=== PATIENT | female | born 1990 | race African-American/Black ===

== ENCOUNTER 2019-01-23 09:06 | Emergency (ER) | payer MEDICAID ==
[~2019-01-23] VITALS: Ht 170.2 cm; Wt 103.0 kg
[2019-01-23] MEDS ORDERED: SODIUM CHLORIDE 0.9% 1,000 ML IV ONE (09:36)
[2019-01-23] MEDS ORDERED: FAMOTIDINE 20MG/2ML VIAL IV STA (09:36)
[2019-01-23 10:26] LABS: BASOPHILS % 0.7 % (0.0-2.0); EOSINOPHILS % 2.4 % (0.0-5.0); HEMATOCRIT. 37.1 % (36.0-48.0); HEMOGLOBIN. 12.6 g/dL (12.0-16.0); LYMPHOCYTES % 28.1 % (20.0-50.0); MEAN CORPUSCULAR HEMOGLOBIN 30.7 pg (28.0-32.0); MEAN CORPUSCULAR VOLUME 90.6 fL (81.0-99.0); MEAN PLATELET VOLUME 8.2 fl (7.4-10.4); MONOCYTES % 6.3 % (2.0-8.0); NEUTROPHILS % 62.5 % (40.0-76.0); PLATELET 320 x1000/uL (130-400); RED BLOOD CELL COUNT 4.09 mill/uL (4.2-5.4); RED CELL DISTRIBUTION WIDTH 13.4 % (11.6-14.6)
[2019-01-23 10:32] LABS: CHLORIDE 109 mEq/L (98-107); PROTHROMBIN TIME 9.9 sec (9.6-11.0)
[2019-01-23 10:38] LABS: HCG SCREEN NEGATIVE
[2019-01-23 10:45] LABS: B-HCG QUANTITATIVE < 1 mIU/mL (<3)
[2019-01-23 10:49] LABS: CLARITY URINE CLOUDY (CLEAR); COLOR URINE YELLOW (YELLOW); KETONES URINE NEGATIVE (NEGATIVE); LEUKOCYTE ESTERASE URINE 2+ (NEGATIVE); NITRITE URINE NEGATIVE (NEGATIVE); OCCULT BLOOD URINE NEGATIVE (NEGATIVE); PROTEIN URINE NEGATIVE (NEGATIVE); SPECIFIC GRAVITY URINE 1.019 (1.005-1.030); UROBILINOGEN URINE 0.2 E.U./dL (0.2-1.0)
[2019-01-23 11:11] LABS: *AMPHETAMINES SCREEN URINE NEGATIVE (NEGATIVE); *BARBITURATES SCREEN URINE NEGATIVE (NEGATIVE); *BENZODIAZEPINES SCREEN URINE NEGATIVE (NEGATIVE); *COCAINE SCREEN URINE NEGATIVE (NEGATIVE)
[2019-01-23 11:12] LABS: CANNABINOID URINE SCREEN NEGATIVE (NEGATIVE); METHADONE URINE SCREEN NEGATIVE (NEGATIVE); OPIATES URINE SCREEN NEGATIVE (NEGATIVE); PHENCYCLIDINE URINE SCREEN NEGATIVE (NEGATIVE)
[2019-01-23 11:55] VITALS: BP 135/89
== END 2019-01-23 12:09 | disposition home or self-care (01) ==
LOC: ER 09:06
DX: R06.00 Dyspnea, unspecified (principal); N39.0 Urinary tract infection, site not specified; F32.9 Major depressive disorder, single episode, unspecified; Z87.19 Personal history of other diseases of the digestive system
CPT/HCPCS: 36415; 71045; 80053; 80305; 81003; 81025; 83690; 83880; 84484; 84702; 84703; 85025; 85610; 86850; 86900; 86901; 93005; 96374; 99284; J3490; J7030

== ENCOUNTER 2019-04-29 09:22 | Emergency (ER) | payer MEDICAID, MEDICARE ==
[~2019-04-29] VITALS: Ht 167.6 cm; Wt 109.0 kg
[2019-04-29 09:35] VITALS: BP 138/76
[2019-04-29] MEDS ORDERED: ACETAMINOPHEN 325MG TABLET PO ONE (11:15)
== END 2019-04-29 12:19 | disposition home or self-care (01) ==
LOC: ER 09:22
DX: O99.89 Other specified diseases and conditions complicating pregnancy, childbirth and the puerperium (principal); J02.9 Acute pharyngitis, unspecified; O26.891 Other specified pregnancy related conditions, first trimester; R03.0 Elevated blood-pressure reading, without diagnosis of hypertension; Z3A.14 14 weeks gestation of pregnancy
CPT/HCPCS: 81025; 99282

== ENCOUNTER 2020-08-14 06:35 | Emergency (ER) | payer MEDICARE ==
[~2020-08-14] VITALS: Ht 165.1 cm; Wt 91.0 kg
[2020-08-14] MEDS ORDERED: ACETAMINOPHEN 325MG TABLET PO STA (07:37)
[2020-08-14 10:00] VITALS: BP 135/89
== END 2020-08-14 11:40 | disposition home or self-care (01) ==
LOC: ER 07:17
DX: S00.83XA Contusion of other part of head, initial encounter (principal); R55 Syncope and collapse; Y08.89XA Assault by other specified means, initial encounter; Y93.89 Activity, other specified; Y92.89 Other specified places as the place of occurrence of the external cause; Y99.8 Other external cause status
CPT/HCPCS: 70450; 73080; 73090; 81025; 99284; Z7610

== ENCOUNTER 2020-09-04 20:20 | Emergency (ER) | payer MEDICAID, MEDICARE ==
[~2020-09-04] VITALS: Ht 167.6 cm; Wt 104.0 kg
[2020-09-04] MEDS ORDERED: PYRIDOXINE HCL 50MG TABLET PO ONE (21:00)
[2020-09-04] MEDS ORDERED: SODIUM CHLORIDE 0.9% 1,000 ML IV ONE (21:00)
[2020-09-04 21:50] LABS: CHLORIDE 108 mEq/L (98-107)
[2020-09-04] MEDS ORDERED: POTASSIUM CHLORIDE 20MEQ TABLET SR PO ONE (22:15)
[2020-09-04 23:20] VITALS: BP 112/68
== END 2020-09-04 23:20 | disposition home or self-care (01) ==
LOC: ER 20:20
DX: R11.0 Nausea (principal); E86.0 Dehydration
CPT/HCPCS: 36415; 80053; 81025; 93005; 96360; 99284; J7030

== ENCOUNTER 2021-05-01 19:40 | Inpatient (IN) | payer MEDICAID ==
[~2021-05-01] VITALS: Ht 167.6 cm; Wt 104.3 kg
[2021-05-01] MEDS ORDERED: BISACODYL 10MG SUPP PR PRN (20:15)
[2021-05-01] MEDS ORDERED: DIPHENHYDRAMINE 25MG CAPSULE PO PRN (20:15)
[2021-05-01] MEDS ORDERED: GLYCERIN/WITCH HAZEL LEAF MEDICATED PAD TOP PRN (20:15)
[2021-05-01] MEDS ORDERED: IBUPROFEN 400MG TABLET PO PRN (20:15)
[2021-05-01] MEDS ORDERED: LANOLIN OINT 7GM TUBE TOP PRN (20:15)
[2021-05-01] MEDS ORDERED: RHO(D) IMMUNE GLOBULIN 300 MCG/SYR IM PRN (20:15)
[2021-05-01] MEDS ORDERED: ACETAMINOPHEN WITH CODEINE 300/30MG TABLET PO PRN (20:15)
[2021-05-01] MEDS ORDERED: LACTATED RINGERS 1,000 ML IV SCH (20:15)
[2021-05-01] MEDS ORDERED: NALOXONE HCL 0.4 MG/ML 1ML VIAL IM PRN (20:15)
[2021-05-01] MEDS ORDERED: CARBOPROST TROMETHAMINE 250 MCG/ML AMPUL IM PRN (20:15)
[2021-05-01] MEDS ORDERED: HEMORRHOIDAL SUPP PR PRN (20:15)
[2021-05-01] MEDS ORDERED: DEXT 5%/LR + PITOCIN 20UNITS/L 1,000 ML IV SCH (20:15)
[2021-05-01] MEDS ORDERED: METHYLERGONOVINE MALEATE 0.2 MG/ML IM PRN ×2 (20:15)
[2021-05-01 21:35] LABS: BASOPHILS % 0.3 % (0.0-2.0); EOSINOPHILS % 0.7 % (0.0-5.0); HEMATOCRIT. 34.2 % (36.0-48.0); HEMOGLOBIN. 11.6 g/dL (12.0-16.0); LYMPHOCYTES % 22.1 % (20.0-50.0); MEAN CORPUSCULAR HEMOGLOBIN 31.1 pg (28.0-32.0); MEAN CORPUSCULAR VOLUME 91.6 fL (81.0-99.0); MEAN PLATELET VOLUME 7.7 fl (7.4-10.4); MONOCYTES % 4.3 % (2.0-8.0); NEUTROPHILS % 72.6 % (40.0-76.0); PLATELET 298 x1000/uL (130-400); RED BLOOD CELL COUNT 3.74 mill/uL (4.2-5.4); RED CELL DISTRIBUTION WIDTH 13.6 % (11.6-14.6)
[2021-05-01] MEDS: DEXT 5%/LR + PITOCIN 20UNITS/L 1,000 ML IV SCH ×2 (21:35→23:07)
[2021-05-01] MEDS ORDERED: FERR-71 MT (21:37)
[2021-05-01] MEDS ORDERED: PREN-52 PO (21:37)
[2021-05-01 21:39] LABS: CLARITY URINE TURBID (CLEAR); COLOR URINE RED (YELLOW); KETONES URINE 1+ (NEGATIVE); LEUKOCYTE ESTERASE URINE 2+ (NEGATIVE); NITRITE URINE NEGATIVE (NEGATIVE); OCCULT BLOOD URINE 3+ (NEGATIVE); PH URINE 6.5 (4.5-8.0); PROTEIN URINE 2+ (NEGATIVE); SPECIFIC GRAVITY URINE 1.016 (1.005-1.030)
[2021-05-01 21:40] LABS: INR 0.9; PARTIAL THROMBOPLASTIN TIME 27.3 sec (23.4-31.0); PROTHROMBIN TIME 9.7 sec (9.6-11.0)
[2021-05-01 22:12] LABS: *AMPHETAMINES SCREEN URINE NEGATIVE (NEGATIVE); *BARBITURATES SCREEN URINE NEGATIVE (NEGATIVE); *BENZODIAZEPINES SCREEN URINE NEGATIVE (NEGATIVE)
[2021-05-01 22:13] LABS: *COCAINE SCREEN URINE NEGATIVE (NEGATIVE); CANNABINOID URINE SCREEN NEGATIVE (NEGATIVE); METHADONE URINE SCREEN NEGATIVE (NEGATIVE); OPIATES URINE SCREEN NEGATIVE (NEGATIVE); PHENCYCLIDINE URINE SCREEN NEGATIVE (NEGATIVE)
[2021-05-01 23:00] VITALS: BP 130/82
[2021-05-01] MEDS: IBUPROFEN 800MG TABLET PO PRN (23:07)
[2021-05-01] MEDS: DOCUSATE SODIUM 100MG CAPSULE PO SCH (23:07)
[2021-05-02 01:43] VITALS: BP 120/58
[2021-05-02 01:58] LABS: HEPATITIS B SURFACE ANTIGEN NEGATIVE
[2021-05-02 04:12] VITALS: BP 130/76
[2021-05-02 07:36] LABS: BASOPHILS % 0.4 % (0.0-2.0); EOSINOPHILS % 1.1 % (0.0-5.0); HEMATOCRIT. 32.7 % (36.0-48.0); HEMOGLOBIN. 11.5 g/dL (12.0-16.0); LYMPHOCYTES % 22.1 % (20.0-50.0); MEAN CORPUSCULAR HEMOGLOBIN 31.7 pg (28.0-32.0); MEAN CORPUSCULAR VOLUME 90.2 fL (81.0-99.0); MEAN PLATELET VOLUME 7.5 fl (7.4-10.4); NEUTROPHILS % 71.4 % (40.0-76.0); PLATELET 248 x1000/uL (130-400); RED BLOOD CELL COUNT 3.62 mill/uL (4.2-5.4); RED CELL DISTRIBUTION WIDTH 13.7 % (11.6-14.6)
[2021-05-02 08:00] VITALS: BP 132/73
[2021-05-02] MEDS: PRENATAL VIT/FE FUMARATE/FA TABLET PO SCH (16:01)
[2021-05-02] MEDS: IBUPROFEN 800MG TABLET PO PRN (16:01)
[2021-05-02] MEDS: FERROUS SULFATE 325MG TABLET PO SCH (16:01)
[2021-05-02 16:31] VITALS: BP 138/65
[2021-05-02 20:00] VITALS: BP 119/63
[2021-05-02] MEDS: DOCUSATE SODIUM 100MG CAPSULE PO SCH (21:42)
[2021-05-03 04:00] VITALS: BP 125/78
[2021-05-03] MEDS: IBUPROFEN 800MG TABLET PO PRN (04:50)
[2021-05-03] MEDS ORDERED: IBUP-2030 PO (07:11)
[2021-05-03] MEDS: FERROUS SULFATE 325MG TABLET PO SCH (08:20)
[2021-05-03] MEDS: PRENATAL VIT/FE FUMARATE/FA TABLET PO SCH (08:20)
[2021-05-03 08:30] VITALS: BP 126/72
[2021-05-03 13:06] LABS: HIV SCREEN 4G Non Reactive (Non Reactive)
== END 2021-05-03 13:05 | disposition home or self-care (01) | DRG 560 ==
LOC: OBSVTOIN 19:40 → 8 EST LDRP 19:40
PROVIDERS: ADMIT Specialist; ATTEND Specialist
PROC: 10D07Z6 Extraction of Products of Conception, Vacuum, Via Natural or Artificial Opening (ICD-10-PCS; principal; 2021-05-01)
DX: O48.0 Post-term pregnancy (principal); Z37.0 Single live birth; U07.1 COVID-19; O99.344 Other mental disorders complicating childbirth; O98.52 Other viral diseases complicating childbirth; O69.81X0 Labor and delivery complicated by cord around neck, without compression, not applicable or unspecified; F32.A Depression, unspecified; O76 Abnormality in fetal heart rate and rhythm complicating labor and delivery; Z3A.40 40 weeks gestation of pregnancy
CPT/HCPCS: 36415; 80305; 81003; 85025; 86592; 86762; 86850; 86900; 87340; 87389; 87426; 99281; G0378; J2590

== ENCOUNTER 2021-12-17 14:16 | Emergency (ER) | payer MEDICAID ==
[~2021-12-17] VITALS: Ht 167.6 cm; Wt 110.0 kg
[~2021-12-17 14:16] MED LIST: FERR-71 MT; IBUP-2030 PO; PREN-52 PO
[2021-12-17] MEDS ORDERED: ACETAMINOPHEN 325MG TABLET PO STA (14:30)
[2021-12-17] MEDS ORDERED: SODIUM CHLORIDE 0.9% 1,000 ML IV ONE (14:30)
[2021-12-17] MEDS ORDERED: CEFTRIAXONE 1 G PREMIX 50 ML IV NR (15:30)
[2021-12-17] MEDS ORDERED: KETOROLAC 15MG/ML VIAL IV NR (15:30)
[2021-12-17 15:34] LABS: BASOPHILS % 0.2 % (0.0-2.0); HEMATOCRIT. 37.1 % (36.0-48.0); HEMOGLOBIN. 12.6 g/dL (12.0-16.0); LYMPHOCYTES % 9.7 % (20.0-50.0); MEAN CORPUSCULAR HEMOGLOBIN 30.3 pg (28.0-32.0); MEAN CORPUSCULAR VOLUME 89.1 fL (81.0-99.0); MEAN PLATELET VOLUME 7.7 fl (7.4-10.4); MONOCYTES % 6.6 % (2.0-8.0); NEUTROPHILS % 83.5 % (40.0-76.0); PLATELET 250 x1000/uL (130-400); RED BLOOD CELL COUNT 4.16 mill/uL (4.2-5.4); RED CELL DISTRIBUTION WIDTH 13.2 % (11.6-14.6)
[2021-12-17 15:37] LABS: CHLORIDE 106 mEq/L (98-107)
[2021-12-17 15:37] LABS: CLARITY URINE TURBID (CLEAR); COLOR URINE DARK YELLOW (YELLOW); KETONES URINE 1+ (NEGATIVE); LEUKOCYTE ESTERASE URINE 3+ (NEGATIVE); NITRITE URINE POSITIVE (NEGATIVE); OCCULT BLOOD URINE 1+ (NEGATIVE); PROTEIN URINE 3+ (NEGATIVE); SPECIFIC GRAVITY URINE 1.022 (1.005-1.030)
[2021-12-17] MEDS ORDERED: CEPH500T MT (15:55)
[2021-12-17] MEDS ORDERED: CEFTRIAXONE 1 G PREMIX 50 ML IV ONE (16:00)
[2021-12-17 16:47] VITALS: BP 104/57
== END 2021-12-17 17:05 | disposition home or self-care (01) ==
LOC: ER 14:26
DX: N39.0 Urinary tract infection, site not specified (principal); M79.18 Myalgia, other site
CPT/HCPCS: 36415; 80053; 81003; 85025; 87040; 87077; 87086; 87186; 96361; 96365; 96375; 99284; J0696; J1885; J7030